=== PATIENT | male | born 1940 | race Caucasian/White ===

== ENCOUNTER 2016-09-19 15:53 | Emergency (ER) | payer BC, MEDICARE, OTHER ==
[~2016-09-19] VITALS: Ht 167.6 cm; Wt 85.5 kg
[2016-09-19 16:02] VITALS: BP 117/78
[2016-09-19] MEDS ORDERED: QUIN324C3 OP (16:27)
[2016-09-19] MEDS ORDERED: OMEG100023 PO (16:27)
[2016-09-19] MEDS ORDERED: LINA5TAB PO (16:27)
[2016-09-19] MEDS ORDERED: HYDR25TA11 PO (16:27)
[2016-09-19] MEDS ORDERED: VALS1TAB26 PO (16:27)
[2016-09-19] MEDS ORDERED: LOVA40TA2 PO (16:27)
[2016-09-19] MEDS ORDERED: ASPI-496 PO (16:27)
[2016-09-19] MEDS ORDERED: ASPIRIN 81 MG TABLET CHEW PO ONE (16:30)
[2016-09-19] MEDS ORDERED: SODIUM CHLORIDE FLUSH 10ML SYR IVF ONE (16:30)
[2016-09-19 16:54] LABS: BLOOD UREA NITROGEN 33 mg/dL (7-18)
[2016-09-19 17:01] LABS: IS PT STATUS REG ER OR PRE ER? YES
== END 2016-09-19 17:43 | disposition home or self-care (01) ==
LOC: ED 17:37
DX: J18.9 Pneumonia, unspecified organism (principal); R06.00 Dyspnea, unspecified; E11.9 Type 2 diabetes mellitus without complications; E78.00 Pure hypercholesterolemia, unspecified; I10 Essential (primary) hypertension
CPT/HCPCS: 36415; 71010; 80048; 82040; 83880; 84484; 85025; 93005; 99285

== ENCOUNTER → 2016-10-13 | Outpatient (CLI) | payer OTHER ==
[~2016-10-13] MED LIST: ASPI-496 PO; HYDR25TA11 PO; LINA5TAB PO; LOVA40TA2 PO; OMEG100023 PO; QUIN324C3 OP; VALS1TAB26 PO
== END | disposition home or self-care (01) ==
LOC: CFH 10:53
PROVIDERS: ATTEND Internal Medicine
DX: J18.9 Pneumonia, unspecified organism (principal); R91.8 Other nonspecific abnormal finding of lung field
CPT/HCPCS: 71250